=== PATIENT | female | born 1945 | race Caucasian/White ===

== ENCOUNTER → 2017-11-16 | Outpatient (CLI) | payer OTHER ==
[~2017-11-16] MED LIST: ALBU90OI INH; ASPI325 PO; ATEN100 PO; Biotin1 MG; Biotin1 MG PO; CALCIUM CITRAT1 EAC4 PO; CHOL10002 PO; CLARITIN10 MG PO; CYCL10 PO; Centrum Silver1 EAC1 PO; Dialyvite Tabl1 EACH PO; ERYT.5TO BOTHEYES; ERYTHROMYCIN OPTHALM BOTHEYES; FLUOCINOLONE; FLUT1DIS5 INH; GLIP5 PO; LATA.005SO BOTHEYES; LISI5 PO; MAGNESIUM400 M1 PO; METCAR500 PO; METF500C PO; MSM500 MG PO; NAPR500EC PO; OMEP20ER PO; OTEZLA30 MG PO; Percocet 5-3251 EACH PO; QVAR7.3 G1 INH; SITA100T2 PO; SUPER B-COMPL400 MCG PO; TEMOVATE 0.05% TOP; Tylenol325 MG PO; Zofran Odt4 MG PO; [UNRECOGNIZED DRUG - OTHER] PO
[2017-11-16 15:27] LABS: BASOPHILS ABSOLUTE AUTO 0.09 K/mm3 (0.00-0.23); BASOPHILS PERCENT AUTO 1 % (0-2); EOSINOPHILS ABSOLUTE AUTO 0.33 K/mm3 (0.00-0.68); EOSINOPHILS PERCENT AUTO 3 % (0-6); Hematocrit 38.7 % (33.0-51.0); Hemoglobin 12.9 g/dL (11.5-16.0); IMMATURE GRAN ABSOLUTE AUTO 0.05 K/mm3 (0.00-0.10); IMMATURE GRAN PERCENT AUTO 0 % (0-1); LYMPHOCYTES ABSOLUTE AUTO 2.61 K/mm3 (0.84-5.20); LYMPHOCYTES PERCENT AUTO 23 % (21-46); MONOCYTES ABSOLUTE AUTO 1.19 K/mm3 (0.16-1.47); MONOCYTES PERCENT AUTO 10 % (4-13); Mean Corpuscular HGB 30.7 pg (26.0-34.0); Mean Corpuscular HGB Conc 33.3 g/dL (31.5-36.5); Mean Corpuscular Volume 92 fL (80-100); Mean Platelet Volume 12.3 fL (9.1-12.4); NEUTROPHILS ABSOLUTE AUTO 7.29 K/mm3 (1.96-9.15); NEUTROPHILS PERCENT AUTO 63 % (41-73); Platelet Count 241 K/mm3 (150-400); RDW Coefficient Variation 12.6 % (11.7-14.2); RDW Standard Deviation 42.1 fL (35.1-46.3); White Blood Cell Count 11.56 K/mm3 (4.00-11.30)
[2017-11-16 15:42] LABS: Alanine Aminotransfer (ALT/SGP 32 U/L (12-78); Albumin, Blood 3.4 g/dL (3.4-5.0); Albumin/Globulin Ratio 0.9 (0.8-1.8); Alk Phos 124 U/L (40-126); Anion Gap 7 mmol/L (6-16); Aspartate Aminotrans (AST/SGOT 27 U/L (12-37); Bilirubin, Total 0.3 mg/dL (0.1-1.0); Blood Urea Nitrogen 10 mg/dL (8-24); Bun/Creatinine Ratio 15.9 (12.0-20.0); CO2, Blood 31 mmol/L (21-32); CPK Creatine Kinase 51 U/L (26-192); Calcium, Blood 9.2 mg/dL (8.5-10.1); Chloride, Blood 101 mmol/L (98-108); Creatinine, Blood 0.63 mg/dL (0.40-1.00); Glomerular Filtration Rate >60 (60-); Glucose, Blood 179 mg/dL (70-99); Potassium, Blood 3.6 mmol/L (3.5-5.5); Sodium, Blood 139 mmol/L (136-145); Total Protein, Blood 7.4 g/dL (6.4-8.2); Troponin I <0.017 ng/mL (0.000-0.040)
== END ==
LOC: LAB SHORT 15:22
PROVIDERS: General Practice
DX: R00.2 Palpitations (principal); R53.1 Weakness; R53.81 Other malaise
CPT/HCPCS: 80053; 82550; 84443; 84484; 85025

== ENCOUNTER 2018-06-02 05:47 | Day surgery (SDC) | payer OTHER ==
[~2018-06-02] VITALS: Ht 149.9 cm; Wt 86.6 kg
[~2018-06-02 05:47] MED LIST changes: -ASPI325 PO; -CYCL10 PO; -METF500C PO; +METF850 PO; -Percocet 5-3251 EACH PO; -Zofran Odt4 MG PO
[2018-06-03 06:15] LABS: BASOPHILS ABSOLUTE AUTO 0.08 K/mm3 (0.00-0.23); BASOPHILS PERCENT AUTO 1 % (0-2); EOSINOPHILS ABSOLUTE AUTO 0.26 K/mm3 (0.00-0.68); EOSINOPHILS PERCENT AUTO 2 % (0-6); Hematocrit 32.9 % (33.0-51.0); Hemoglobin 10.6 g/dL (11.5-16.0); IMMATURE GRAN ABSOLUTE AUTO 0.07 K/mm3 (0.00-0.10); IMMATURE GRAN PERCENT AUTO 0 % (0-1); LYMPHOCYTES ABSOLUTE AUTO 1.87 K/mm3 (0.84-5.20); LYMPHOCYTES PERCENT AUTO 12 % (21-46); MONOCYTES PERCENT AUTO 10 % (4-13); Mean Corpuscular HGB 30.5 pg (26.0-34.0); Mean Corpuscular HGB Conc 32.2 g/dL (31.5-36.5); Mean Corpuscular Volume 95 fL (80-100); Mean Platelet Volume 12.8 fL (9.1-12.4); NEUTROPHILS ABSOLUTE AUTO 11.89 K/mm3 (1.96-9.15); NEUTROPHILS PERCENT AUTO 76 % (41-73); Platelet Count 184 K/mm3 (150-400); RDW Coefficient Variation 12.5 % (11.7-14.2); RDW Standard Deviation 43.2 fL (35.1-46.3); Red Blood Cell Count 3.47 M/mm3 (3.80-5.20); White Blood Cell Count 15.67 K/mm3 (4.00-11.30)
[2018-06-03 06:47] LABS: Anion Gap 6 mmol/L (6-16); Blood Urea Nitrogen 12 mg/dL (8-24); Bun/Creatinine Ratio 17.3 (12.0-20.0); CO2, Blood 30 mmol/L (21-32); Calcium, Blood 8.5 mg/dL (8.5-10.1); Chloride, Blood 101 mmol/L (98-108); Glomerular Filtration Rate >60 (60-); Glucose, Blood 150 mg/dL (70-99); Potassium, Blood 4.4 mmol/L (3.5-5.5); Sodium, Blood 137 mmol/L (136-145)
[2018-06-03] MEDS ORDERED: ASPI325 PO (15:38)
[2018-06-03] MEDS ORDERED: Percocet 5-3251 EACH PO (15:39)
[2018-06-03] MEDS ORDERED: CYCL10 PO (15:39)
== END 2018-06-03 15:48 | disposition home or self-care (01) ==
LOC: ORSCMMR 05:47 → ORD 07:30 → SURS 10:56 → ORSCMMR 06-03 15:48
PROVIDERS: Orthopaedic Surgery
PROC: 0SRC0JA Replacement of Right Knee Joint with Synthetic Substitute, Uncemented, Open Approach (ICD-10-PCS; principal; 2018-06-02 07:30)
DX: M17.11 Unilateral primary osteoarthritis, right knee (principal); I10 Essential (primary) hypertension; G47.33 Obstructive sleep apnea (adult) (pediatric); E11.9 Type 2 diabetes mellitus without complications; K21.9 Gastro-esophageal reflux disease without esophagitis; E66.01 Morbid (severe) obesity due to excess calories; Z68.38 Body mass index [BMI] 38.0-38.9, adult; Z79.899 Other long term (current) drug therapy
CPT/HCPCS: 36415; 73560-RT; 80048; 82947; 85025; 85730; 86850; 86900; 86901; 88300; 94640; 94760; 97110; 97116; 97162; 97530; A9270; C1713; C1776; G8978; G8979; J0171; J0690; J0735; J1885; J2250; J2405; J2550; J2765; J2795; J3010; J7120

== ENCOUNTER 2019-06-03 10:37 | Day surgery (SDC) | payer OTHER ==
[~2019-06-03] VITALS: Ht 152.4 cm; Wt 76.5 kg
[~2019-06-03 10:37] MED LIST changes: +ASPI325 PO; +CYCL10 PO; +GABAPENTIN PO; +METF500C PO; -METF850 PO; +Percocet 5-3251 EACH PO; +TIZA4 PO; +Zofran Odt4 MG PO
--- NOTE | 2019-06-03 11:17 | NUR ---
Ambulatory in Day Surgery.REPORTS 9/10 LEFT KNEE PAIN. History, Chart, Medications and Allergies reviewed before start of procedure.Lungs clear T/O to Auscultation. Patient confirms NPO status and agrees with scheduled surgery. Patient reports completing Chlorhexadine shower X2 prior to admission to hospital.Surgical site prepped with 2% Chlorhexidine cloth wipe.
--- NOTE | 2019-06-03 15:10 | NUR ---
PT ARRIVED TO THE ROOM AT APPROXIMATELY 1445. PT ALERT AND ORIENTED. PT DENIES PAIN AT THIS TIME. VSS. WILL CONTINUE TO MONITOR.
--- NOTE | 2019-06-03 19:53 | NUR ---
SHIFT SUMMARY PAIN HAS BEEN MINIMAL POST OP. PT SLOWLY REGAINED SENSATION AND MOVEMENT TO LLE. PT NOW MOVING ALL EXTREMITIES WELL AND REPORTS FULL SENSATION. VSS. REPORT GIVEN TO LANDON VALLEJO.
[2019-06-04 04:27] LABS: BASOPHILS ABSOLUTE AUTO 0.01 K/mm3 (0.00-0.23); BASOPHILS PERCENT AUTO 0 % (0-2); EOSINOPHILS PERCENT AUTO 0 % (0-6); Hematocrit 34.5 % (33.0-51.0); Hemoglobin 11.3 g/dL (11.5-16.0); IMMATURE GRAN ABSOLUTE AUTO 0.07 K/mm3 (0.00-0.10); IMMATURE GRAN PERCENT AUTO 1 % (0-1); LYMPHOCYTES ABSOLUTE AUTO 1.24 K/mm3 (0.84-5.20); LYMPHOCYTES PERCENT AUTO 8 % (21-46); MONOCYTES ABSOLUTE AUTO 0.73 K/mm3 (0.16-1.47); MONOCYTES PERCENT AUTO 5 % (4-13); Mean Corpuscular HGB 30.6 pg (26.0-34.0); Mean Corpuscular HGB Conc 32.8 g/dL (31.5-36.5); Mean Corpuscular Volume 94 fL (80-100); NEUTROPHILS ABSOLUTE AUTO 12.89 K/mm3 (1.96-9.15); NEUTROPHILS PERCENT AUTO 86 % (41-73); Platelet Count 182 K/mm3 (150-400); RDW Coefficient Variation 12.1 % (11.7-14.2); Red Blood Cell Count 3.69 M/mm3 (3.80-5.20); White Blood Cell Count 14.94 K/mm3 (4.00-11.30)
[2019-06-04 04:28] LABS: Mean Platelet Volume 13.4 fL (9.1-12.4)
[2019-06-04 04:42] LABS: Anion Gap 8 mmol/L (6-16); Blood Urea Nitrogen 15 mg/dL (8-24); Bun/Creatinine Ratio 26.3 (12.0-20.0); CO2, Blood 27 mmol/L (21-32); Calcium, Blood 8.3 mg/dL (8.5-10.1); Chloride, Blood 100 mmol/L (98-108); Creatinine, Blood 0.57 mg/dL (0.40-1.00); Glomerular Filtration Rate >60 (60-); Glucose, Blood 254 mg/dL (70-99); Magnesium, Blood 1.7 mg/dL (1.6-2.4); Potassium, Blood 4.2 mmol/L (3.5-5.5); Sodium, Blood 135 mmol/L (136-145)
--- NOTE | 2019-06-04 07:07 | NUR ---
SHIFT SUMMARY HAS RESTED WITH WELL THIS SHIFT. HAS AMBULATED WITHIN THE ROOM WELL. PAIN MANGED WITH PO PAIN MEDS. SAFETY MEASURES IN PLACE. WILL CONTINUE TO MONITOR.
[2019-06-04] MEDS ORDERED: Percocet 5-3251 EACH PO (10:54)
[2019-06-04] MEDS ORDERED: Aspirin EC81 MG PO (10:54)
--- NOTE | 2019-06-04 12:45 | NUR ---
06/04/19 1245 Shelley Luque VERIFICATIONS: EDIT CHART.
--- NOTE | 2019-06-04 13:15 | NUR ---
DISCHARGE DISCHARGE INSTRUCTIONS REVIEWED WITH PATIENT AND HER DAUGHTER. PATIENT AWAITING RIDE
== END 2019-06-04 13:30 | disposition home or self-care (01) ==
LOC: ORSCMMR 10:37 → ORD 11:45 → SURS 14:53 → ORSCMMR 06-04 13:30 → SURS 06-04 13:30
PROVIDERS: Orthopaedic Surgery
PROC: 0SRD0JA Replacement of Left Knee Joint with Synthetic Substitute, Uncemented, Open Approach (ICD-10-PCS; principal; 2019-06-03 11:45)
DX: M17.12 Unilateral primary osteoarthritis, left knee (principal); Z01.818 Encounter for other preprocedural examination; I10 Essential (primary) hypertension; G47.33 Obstructive sleep apnea (adult) (pediatric); K21.9 Gastro-esophageal reflux disease without esophagitis; E11.9 Type 2 diabetes mellitus without complications; E66.9 Obesity, unspecified; Z68.32 Body mass index [BMI] 32.0-32.9, adult
CPT/HCPCS: 36415; 73560-LT; 80048; 82947; 83735; 85025; 86850; 86900; 86901; 88300; 97110; 97116; 97162; 97530; A9270; C1776; J0171; J0690; J0735; J1100; J1170; J1815; J1885; J2250; J2405; J2550; J2704; J2765; J2795; J3010; J7120

== ENCOUNTER 2019-09-23 12:30 | Day surgery (SDC) | payer OTHER ==
[~2019-09-23] VITALS: Ht 157.5 cm; Wt 74.7 kg
[~2019-09-23 12:30] MED LIST changes: +Aspirin EC81 MG PO; +Metformin HCl1000 MG PO; +Prinivil10 MG PO; +QVAR REDIHALE10.6 GM INH
--- NOTE | 2019-09-23 13:20 | NUR ---
09/23/19 1320 BRIAN MELENDZE ONE BAD IV DUE TO VALVE, ONE GOOD IV IN RIGHT AC DONE BY DAVID
== END 2019-09-23 14:26 | disposition home or self-care (01) ==
LOC: ORSCSDS 12:30
PROVIDERS: Surgery
PROC: 0DJD8ZZ Inspection of Lower Intestinal Tract, Via Natural or Artificial Opening Endoscopic (ICD-10-PCS; principal; 2019-09-23 13:45)
PROC: 0DJ08ZZ Inspection of Upper Intestinal Tract, Via Natural or Artificial Opening Endoscopic (ICD-10-PCS; 2019-09-23 13:45)
DX: Z12.11 Encounter for screening for malignant neoplasm of colon (principal); Z86.010 Personal history of colon polyps; K21.9 Gastro-esophageal reflux disease without esophagitis; E11.9 Type 2 diabetes mellitus without complications; Z79.84 Long term (current) use of oral hypoglycemic drugs; Z79.899 Other long term (current) drug therapy
CPT/HCPCS: 43235; G0105; 82947; J2704; J7120

== ENCOUNTER → 2020-01-30 | Outpatient (CLI) | payer OTHER | END | disposition home or self-care (01) | LOC: LAB EV 12:01 → EDSTATUS 01-24 18:40 → LAB FUT 01-24 18:40 | DX: E11.9 Type 2 diabetes mellitus without complications (principal); K86.89 Other specified diseases of pancreas; R19.7 Diarrhea, unspecified | CPT/HCPCS: 82656 ==

== ENCOUNTER → 2021-01-12 | Outpatient (CLI) | payer OTHER ==
[2021-01-12 14:18] LABS: Source, Urine Clean Catch
[2021-01-12 14:24] LABS: Appearance, Urine Clear (Clear); Bilirubin, Urine Neg (Neg); Blood, Urine Neg (Neg); Color, Urine Yellow (P-Yellow); Glucose Qualitative, Urine 3+ (Normal); Ketones, Urine Neg (Neg); Leukocyte Esterase, Urine Neg (Neg); Nitrite, Urine Neg (Neg); Protein, Urine Neg (Neg); Specific Gravity, Urine 1.015 (1.003-1.022); Urobilinogen, Urine NORM (Normal)
== END | disposition home or self-care (01) ==
LOC: LAB 13:30 → LAB SHORT 13:30
PROVIDERS: Nurse Practitioner Family
DX: R30.0 Dysuria (principal)
CPT/HCPCS: 81003

== ENCOUNTER → 2021-06-26 | Outpatient (CLI) | payer OTHER | LOC: LAB SHORT 10:49 → LAB EV 10:49 | DX: N39.0 Urinary tract infection, site not specified (principal) | CPT/HCPCS: 87077; 87086; 87147; 87186 ==

== ENCOUNTER → 2022-01-23 | Outpatient (CLI) | payer OTHER ==
[2022-01-24 18:55] LABS: Adenovirus F 40/41 Not Detected (NOT DETECT); Astrovirus Not Detected (NOT DETECT); Campylobacter Sp Not Detected (NOT DETECT); Cryptosporidium Not Detected (NOT DETECT); Cyclospora Cayetanensis Not Detected (NOT DETECT); E. Coli O157 Not Detected (NOT DETECT); Entamoeba Histolytica Not Detected (NOT DETECT); Enteroaggregative E. coli-EAEC Not Detected (NOT DETECT); Enteropathogenic E. coli-EPEC Not Detected (NOT DETECT); Enterotoxigenic E. coli-ETEC Not Detected (NOT DETECT); Giardia Lamblia Not Detected (NOT DETECT); Norovirus GI/GII Not Detected (NOT DETECT); Plesiomonas Shigelloides Not Detected (NOT DETECT); Rotavirus A Not Detected (NOT DETECT); Salmonella Sp Not Detected (NOT DETECT); Sapovirus Not Detected (NOT DETECT); Shiga Toxin-prod E. coli-STEC Not Detected (NOT DETECT); Shigella/Enteroin E. coli-EIEC Not Detected (NOT DETECT); Vibrio Cholerae Not Detected (NOT DETECT); Vibrio Sp Not Detected (NOT DETECT); Yersinia Enterocolitica Not Detected (NOT DETECT)
== END | disposition home or self-care (01) ==
LOC: LAB SHORT 14:47 → LAB 14:47 → EDSTATUS 12-25 16:45 → LAB FUT 12-25 16:45
PROVIDERS: Physician Assistant Medical
DX: K52.9 Noninfective gastroenteritis and colitis, unspecified (principal)
CPT/HCPCS: 0097U

== ENCOUNTER → 2022-05-13 | Outpatient (CLI) | payer OTHER | END | disposition home or self-care (01) | LOC: LAB SHORT 10:31 → LAB 10:31 | DX: R30.0 Dysuria (principal) | CPT/HCPCS: 87077; 87086; 87186 ==

== ENCOUNTER → 2022-07-29 | Outpatient (CLI) | payer OTHER ==
[2022-07-30 19:43] LABS: Adenovirus F 40/41 Not Detected (NOT DETECT); Astrovirus Not Detected (NOT DETECT); Campylobacter Sp Not Detected (NOT DETECT); Cryptosporidium Not Detected (NOT DETECT); Cyclospora Cayetanensis Not Detected (NOT DETECT); E. Coli O157 Not Detected (NOT DETECT); Entamoeba Histolytica Not Detected (NOT DETECT); Enteroaggregative E. coli-EAEC Not Detected (NOT DETECT); Enteropathogenic E. coli-EPEC Not Detected (NOT DETECT); Enterotoxigenic E. coli-ETEC Not Detected (NOT DETECT); Giardia Lamblia Not Detected (NOT DETECT); Norovirus GI/GII Not Detected (NOT DETECT); Plesiomonas Shigelloides Not Detected (NOT DETECT); Rotavirus A Not Detected (NOT DETECT); Salmonella Sp Not Detected (NOT DETECT); Sapovirus Not Detected (NOT DETECT); Shiga Toxin-prod E. coli-STEC Not Detected (NOT DETECT); Shigella/Enteroin E. coli-EIEC Not Detected (NOT DETECT); Vibrio Cholerae Not Detected (NOT DETECT); Vibrio Sp Not Detected (NOT DETECT); Yersinia Enterocolitica Not Detected (NOT DETECT)
== END | disposition home or self-care (01) ==
LOC: LAB SHORT 16:00
PROVIDERS: Physician Assistant Medical
DX: R19.7 Diarrhea, unspecified (principal)
CPT/HCPCS: 87507

== ENCOUNTER 2022-08-26 22:39 | Inpatient (IN) | payer OTHER ==
[~2022-08-26] VITALS: Ht 152.4 cm; Wt 79.0 kg
[2022-08-27 00:15] LABS: BASOPHILS ABSOLUTE AUTO 0.09 K/mm3 (0.00-0.23); BASOPHILS PERCENT AUTO 1 % (0-2); EOSINOPHILS ABSOLUTE AUTO 0.22 K/mm3 (0.00-0.68); EOSINOPHILS PERCENT AUTO 2 % (0-6); Hematocrit 35.9 % (33.0-51.0); Hemoglobin 11.9 g/dL (11.5-16.0); IMMATURE GRAN ABSOLUTE AUTO 0.07 K/mm3 (0.00-0.10); IMMATURE GRAN PERCENT AUTO 1 % (0-1); LYMPHOCYTES ABSOLUTE AUTO 2.23 K/mm3 (0.84-5.20); LYMPHOCYTES PERCENT AUTO 15 % (21-46); MONOCYTES ABSOLUTE AUTO 1.05 K/mm3 (0.16-1.47); MONOCYTES PERCENT AUTO 7 % (4-13); Mean Corpuscular HGB 31.1 pg (26.0-34.0); Mean Corpuscular HGB Conc 33.1 g/dL (31.5-36.5); Mean Corpuscular Volume 94 fL (80-100); Mean Platelet Volume 12.6 fL (9.1-12.4); NEUTROPHILS ABSOLUTE AUTO 11.35 K/mm3 (1.96-9.15); NEUTROPHILS PERCENT AUTO 76 % (41-73); Platelet Count 187 K/mm3 (150-400); RDW Coefficient Variation 12.7 % (11.7-14.2); RDW Standard Deviation 43.8 fL (35.1-46.3); Red Blood Cell Count 3.83 M/mm3 (3.80-5.20); White Blood Cell Count 15.01 K/mm3 (4.00-11.30)
[2022-08-27 00:44] LABS: Albumin, Blood 3.2 g/dL (3.4-5.0); Albumin/Globulin Ratio 0.9 (0.8-1.8); Bilirubin, Total 0.3 mg/dL (0.1-1.0); Bun/Creatinine Ratio 25.5 (12.0-20.0); Calcium, Blood 8.8 mg/dL (8.5-10.1); Creatinine, Blood 0.59 mg/dL (0.40-1.00); Globulin, Blood 3.7 g/dL (2.2-4.0); Potassium, Blood 4.3 mmol/L (3.5-5.5); Total Protein, Blood 6.9 g/dL (6.4-8.2)
[2022-08-27 01:02] LABS: Influenza A, PCR NEGATIVE (NEGATIVE); Influenza B, PCR NEGATIVE (NEGATIVE); Resp Syncytial Virus, PCR NEGATIVE (NEGATIVE); SARS-Cov-2 (COVID-19) PCR, MMC NEGATIVE (NEGATIVE)
[2022-08-27] MEDS ORDERED: PANT40 PO (02:04)
[2022-08-27] MEDS ORDERED: INSULANI SC (02:08)
[2022-08-27] MEDS ORDERED: TRULICITY1.5 MG/0.1 (02:13)
--- NOTE | 2022-08-27 02:52 | NUR ---
PT ARRIVED TO THE ROOM FROM ER. A/OX4, PAINFUL. VSS. RIGHT LEG SHORTENED AND EXTERNALLY ROTATED, PULSES AND SENSATION STRONG. PT CAN WIGGLE TOES ON RLE. PLAN TO PLACE ALVA. DR WOLF SAW THE PATIENT, ORDERS GIVEN. PATIENT ORIENTED TO ROOM AND CALL LIGHT, NPO STATUS.
--- NOTE | 2022-08-27 03:22 | NUR ---
PATIENT REQUESTED TO BE DNI. DR WOLF CALLED, OBTAINED ORDER FOR A DO NOT INTUBATE STATUS.
[2022-08-27 03:26] LABS: Source, Urine Foley catheter
[2022-08-27 03:56] LABS: Bilirubin, Urine Neg (Neg); Blood, Urine Neg (Neg); Glucose Qualitative, Urine Neg (Neg); Ketones, Urine Neg (Neg); Leukocyte Esterase, Urine Neg (Neg); Nitrite, Urine Neg (Neg); Protein, Urine Neg (Neg); Specific Gravity, Urine 1.005 (1.003-1.022); Urobilinogen, Urine NORM (Normal)
[2022-08-27 03:58] LABS: Appearance, Urine Clear (Clear); Color, Urine Yellow (P-Yellow)
--- NOTE | 2022-08-27 04:36 | NUR ---
PT NEW ADMIT FROM THE ER. VSS, 2L O2 VIA NC TO KEEP SATS >90%. RLE SHORTENED AND EXTERALLY ROTATED, SENSATION AND CIRCULATION IN TACT. PAIN HAS BEEN MANAGED WITH A DOSE OF DILAUDID. ALVA PLACED. ORTHO CONSULT PLACED. PT NPO SINCE ARRIVAL TO FLOOR. AWAITING SURGICAL PLANS. PT IS CURRENTLY SLEEPING, CALL LIGHT IN REACH
[2022-08-27 08:32] LABS: BASOPHILS ABSOLUTE AUTO 0.06 K/mm3 (0.00-0.23); BASOPHILS PERCENT AUTO 0 % (0-2); EOSINOPHILS ABSOLUTE AUTO 0.01 K/mm3 (0.00-0.68); EOSINOPHILS PERCENT AUTO 0 % (0-6); Hematocrit 34.8 % (33.0-51.0); Hemoglobin 11.3 g/dL (11.5-16.0); IMMATURE GRAN ABSOLUTE AUTO 0.06 K/mm3 (0.00-0.10); IMMATURE GRAN PERCENT AUTO 0 % (0-1); LYMPHOCYTES ABSOLUTE AUTO 1.54 K/mm3 (0.84-5.20); LYMPHOCYTES PERCENT AUTO 10 % (21-46); MONOCYTES ABSOLUTE AUTO 1.03 K/mm3 (0.16-1.47); MONOCYTES PERCENT AUTO 7 % (4-13); Mean Corpuscular HGB 30.6 pg (26.0-34.0); Mean Corpuscular HGB Conc 32.5 g/dL (31.5-36.5); Mean Corpuscular Volume 94 fL (80-100); Mean Platelet Volume 12.7 fL (9.1-12.4); NEUTROPHILS ABSOLUTE AUTO 12.36 K/mm3 (1.96-9.15); NEUTROPHILS PERCENT AUTO 82 % (41-73); Platelet Count 195 K/mm3 (150-400); RDW Coefficient Variation 12.6 % (11.7-14.2); RDW Standard Deviation 43.6 fL (35.1-46.3); Red Blood Cell Count 3.69 M/mm3 (3.80-5.20); White Blood Cell Count 15.06 K/mm3 (4.00-11.30)
[2022-08-27 08:55] LABS: Albumin, Blood 3.2 g/dL (3.4-5.0); Albumin/Globulin Ratio 0.9 (0.8-1.8); Bilirubin, Total 0.5 mg/dL (0.1-1.0); Bun/Creatinine Ratio 25.8 (12.0-20.0); Calcium, Blood 8.5 mg/dL (8.5-10.1); Creatinine, Blood 0.74 mg/dL (0.40-1.00); Globulin, Blood 3.5 g/dL (2.2-4.0); Potassium, Blood 4.2 mmol/L (3.5-5.5); Total Protein, Blood 6.7 g/dL (6.4-8.2)
--- NOTE | 2022-08-27 11:22 | NUR ---
Pt. is awake in bed and welcomes my visit. Pt. is pleasant and verbalizes that she is awaiting surgery on her leg/hip. Pt. is unsettled by her at home who displays evidence of early stage altzhiemers. Listening with a calming presence. Facilitate a life review. Pt. display evidence of engagement and trust. Prayed with Pt. Pt. verbalized gratitude for the spiritual care visit.
--- NOTE | 2022-08-27 17:16 | NUR ---
Patient confirms NPO status and agrees with scheduled surgery. History, Chart, Medications and Allergies reviewed before start of procedure.Pre-Op teaching done. Pt verbalizes understanding. Lungs clear T/O to Auscultation.
--- NOTE | 2022-08-27 17:19 | NUR ---
IV 22G R AC, RUNS WELL. PT REFUSES SECOND IV AND WISHES FOR IV TO BE PLACED ONCE SHE'S ASLEEP IF NEEDED.
--- NOTE | 2022-08-27 17:25 | NUR ---
SHIFT SUMMARY PT HAS BEEN NPO ALL DAY, PAIN TREATED WITH 50 FENT Q4P, BUCKS TRACTION ON, ALVA PATENT & DRAINING YELLOW URINE. PT WENT TO O.R. APPROX 1645. AT BEDSIDE TILL 1630. WILL REPORT TO ONCOMING LANDON VALLEJO.
--- NOTE | 2022-08-27 20:26 | NUR ---
PT ARRIVED TO FLOOR FROM PACU. RECIEVED 100 MIKES OF FENT BEFORE ARRIVING TO THE FLOOR. VSS. PT A/OX4, ON 2L O2 VIA NC. RLE HAS SENSATION AND CIRCULATION IN TACT. AQUACEL DRESSING IS C/D/I. PT IS RESING IN BED, CALL LIGHT IN REACH.
--- NOTE | 2022-08-28 04:30 | NUR ---
POD1 FOR A RIGHT HIP NAILING. VSS. AQUACELL DRESSING REMAINS C/D/I, NO DRAINAGE NOTED. ICE PACKS HAVE BEEN PLACED ON THE RIGHT HIP AND RIGHT KNEE T/O THE NIGHT. RLE REMAINS ELEVATED ON A PILLOW. CIRCULATION AND SENSATION REMAINS INTACT. PAIN HAS BEEN CONTROLLED WITH FENTENYL, TYLENOL, AND NORCO. THE PATIENT WAS OFFERED AND EDUCATED MULTIPLE TIMES ON REPOSTIONING FOR COMFORT AND SKIN HEALTH, BUT SHE DECLINED DUE TO ANXIETY OF BECOMING MORE PAINFUL. PT TOLLERATING MINIMAL PO INTAKE, ENCOURAGING ORAL FLUIDS AND EATING A SNACK WHEN TAKING ORAL MEDICATION. PT C/O FEELING IF SHE HAS A LOT OF GAS IN HER ABDOMEN. ALVA REMAINS PATENT. PT REMAINED ON 2L O2 VIA NC T/O THE NIGHT. THE PLAN OF CARE IS FOR THE PATIENT TO WORK WITH THERAPY FOR A FEW DAYS AND THEN BE DISCHARGED TO SNF. THE PATIENT IS CURRENTLY SLEEPING, CALL LIGHT IN REACH.
--- NOTE | 2022-08-28 14:07 | NUR ---
Pt. is awake in bed and welcomes my visit. Pt. is pleasant, but is unsettled by how her is having to care for himself, and has not been understanding of the Pts. needs and condition. Listen empathetically with a calming presence. Pt. displays evidence of awareness of the need to take care of herself first. Prayed with Pt. Pt. verbalized gratitude for the spiritual care visit.
--- NOTE | 2022-08-28 17:43 | NUR ---
SUMMARY: PT IS POD1 R HIP PINNING. A/O, VSS. SURGICAL SITE WNL. PT WORKED WITH THERAPY, SEE NOTES. PT CONTINUES TO BE PAINFUL, THERAPY REPORTED THAT PT COMPLAINED MORE OF PAIN AT R KNEE THAN AT HIP. DR. BENSON IS AWARE OF SWELLING AT R KNEE AND AN ULTRASOUND WAS COMPLETED TODAY. PT MEDICATED PER EMAR FOR PAIN AND ICE APPLIED TO HIP AND KNEE. PT RELUCTANT TO MOVE AT TIMES TODAY, NEEDS EDUCATION AND ENCOURAGEMENT. THIS RN REMINDED PT OF IMPORTANCE OF MOBILITY POST OP. OTHERWISE NO CONCERNS, WILL PASS REPORT TO NOC RN.
--- NOTE | 2022-08-29 04:27 | NUR ---
POD2 FOR A RIGHT HIP PINNING. SENSATION AND CIRCULATION IS IN TACT, AQUACELL DRESSING REMAINES C/D/I. ICE PACKS REMAINED ON THE PATIENTS HIP AND RIGHT KNEE T/O THE NIGHT . THE PATIENT REQUESTED FOR THE SCD'S AND FLAVIA HOFATEMEH TO BE REMOVED FOR PART OF THE NIGHT, EDUCATED ON THE IMPORTANCE OF THESE. VSS. PT SLEPT WELL T/O THE NIGHT. MEDICATED FOR PAIN WITH NORCO. ALVA REMAINS IN PLACE, PATENT, PLAN IS FOR THIS TO BE REMOVED TODAY. PT WAS RELUCTANT TO BE REPOSITIONED T/O THE NIGHT BUT ALLOWED IT. PLAN IS FOR THE PATIENT TO CONTINUE WORKING WITH PT UNTIL SHE DISCHARGES TO SNF. THE PATIENT IS CURRENTLY RESTING, IN NO DISTRESS.
[2022-08-29 04:42] LABS: BASOPHILS ABSOLUTE AUTO 0.07 K/mm3 (0.00-0.23); BASOPHILS PERCENT AUTO 1 % (0-2); EOSINOPHILS ABSOLUTE AUTO 0.18 K/mm3 (0.00-0.68); EOSINOPHILS PERCENT AUTO 1 % (0-6); Hematocrit 26.5 % (33.0-51.0); Hemoglobin 8.8 g/dL (11.5-16.0); IMMATURE GRAN ABSOLUTE AUTO 0.05 K/mm3 (0.00-0.10); IMMATURE GRAN PERCENT AUTO 0 % (0-1); LYMPHOCYTES ABSOLUTE AUTO 3.26 K/mm3 (0.84-5.20); LYMPHOCYTES PERCENT AUTO 26 % (21-46); MONOCYTES PERCENT AUTO 13 % (4-13); Mean Corpuscular HGB Conc 33.2 g/dL (31.5-36.5); Mean Corpuscular Volume 93 fL (80-100); Mean Platelet Volume 12.5 fL (9.1-12.4); NEUTROPHILS ABSOLUTE AUTO 7.54 K/mm3 (1.96-9.15); NEUTROPHILS PERCENT AUTO 59 % (41-73); Platelet Count 159 K/mm3 (150-400); RDW Coefficient Variation 12.4 % (11.7-14.2); RDW Standard Deviation 42.5 fL (35.1-46.3); Red Blood Cell Count 2.84 M/mm3 (3.80-5.20)
[2022-08-29 12:25] LABS: SARS-Cov-2 (COVID-19) PCR, MMC NEGATIVE (NEGATIVE)
--- NOTE | 2022-08-29 16:02 | NUR ---
DISCHARGE POD 2 R HIP PINNING. X1 AQUACELS IN PLACE, C/D/I. TRANSFERRING 2P ASSIST, STAND/PIVOT TO CHAIR/BSC. EATING, DRINKING, & VOIDING WELL. DENEIS N/V. MODERATE PAIN MANAGED PER EMAR W/ TYLENOL & NORCO. REPORT CALLED TO GENEVIEVE POP @ [facility]. TRANSPORTED VIA W/C W/ TRANSPORT TEAM.
== END 2022-08-29 16:09 | disposition home or self-care (01) | DRG 482 ==
LOC: ER 22:39 → SURS 08-27 01:19
PROVIDERS: Internal Medicine; Orthopaedic Surgery; Student in an Organized Health Care Education/Training Program; ADMIT Internal Medicine
PROC: 0QS636Z Reposition Right Upper Femur with Intramedullary Internal Fixation Device, Percutaneous Approach (ICD-10-PCS; principal; 2022-08-27 17:00)
DX: S72.141A Displaced intertrochanteric fracture of right femur, initial encounter for closed fracture (principal); E11.9 Type 2 diabetes mellitus without complications; K21.9 Gastro-esophageal reflux disease without esophagitis; I10 Essential (primary) hypertension; W18.30XA Fall on same level, unspecified, initial encounter; K59.00 Constipation, unspecified; S72.21XA Displaced subtrochanteric fracture of right femur, initial encounter for closed fracture; Z20.822 Contact with and (suspected) exposure to COVID-19; Z96.653 Presence of artificial knee joint, bilateral; Z66 Do not resuscitate; Z88.2 Allergy status to sulfonamides; Z88.1 Allergy status to other antibiotic agents; Z88.5 Allergy status to narcotic agent; Z91.040 Latex allergy status; Z79.899 Other long term (current) drug therapy; Z79.51 Long term (current) use of inhaled steroids; Z79.811 Long term (current) use of aromatase inhibitors; Z79.84 Long term (current) use of oral hypoglycemic drugs; Z79.82 Long term (current) use of aspirin; Z90.49 Acquired absence of other specified parts of digestive tract; Z91.041 Radiographic dye allergy status; Z98.890 Other specified postprocedural states; Z79.4 Long term (current) use of insulin
CPT/HCPCS: 0241U; 36415; 73502; 73552; 76882; 80053; 81003; 82947; 83880; 85025; 93005; 93010; 94760; 96374; 96376; 97110; 97162; 97530; 99285-25; A9270; C1713; C1769; J0690; J1170; J1815; J2405; J2704; J2765; J3010; J7030; U0004

== ENCOUNTER → 2022-12-12 | Outpatient (CLI) | payer OTHER ==
[~2022-12-12] MED LIST changes: +INSULANI SC; +PANT40 PO; +TRULICITY1.5 MG/0.1
[2022-12-13 10:19] LABS: Candida species (DNA Probe) Negative (NEGATIVE); G. vaginalis (DNA Probe) Negative (NEGATIVE); T. vaginalis (DNA Probe) Negative (NEGATIVE)
== END | disposition home or self-care (01) ==
LOC: LAB SHORT 11:30 → LAB 11:30
PROVIDERS: Internal Medicine
DX: R30.9 Painful micturition, unspecified (principal)
CPT/HCPCS: 87480; 87510; 87660

== ENCOUNTER → 2024-08-31 | Outpatient (CLI) | payer OTHER ==
[~2024-08-31] MED LIST changes: +ALEN70; +ALLEGRA ALLERGY60 MG PO; +Bentyl10 MG PO; +CARB200 PO; +CLIN1TS; +GABA300 PO; +LISI20 PO; +METF500 PO; +METO50ER; +OTEZLA30 MG; +OZEMPIC0.25 MG/02 SQ; +XYZAL5 MG PO
== END ==
LOC: LAB 18:22 → LAB SHORT 18:22
DX: N39.0 Urinary tract infection, site not specified (principal)
CPT/HCPCS: 87077; 87086; 87186

== ENCOUNTER → 2025-03-23 | Outpatient (CLI) | payer OTHER ==
[2025-03-23 20:55] LABS: Microalb/Creat Ratio UR, Rand 14.577 mg/g (0.000-30.000); Microalbumin, Random Urine 7.58 mg/L (0.000-20.000)
== END | disposition home or self-care (01) ==
LOC: LAB 15:00 → LAB SHORT 15:00
PROVIDERS: Internal Medicine
DX: E11.42 Type 2 diabetes mellitus with diabetic polyneuropathy (principal)
CPT/HCPCS: 82043; 82570

== ENCOUNTER 2025-08-10 10:06 | Day surgery (SDC) | payer OTHER ==
[~2025-08-10] VITALS: Ht 147.3 cm; Wt 67.0 kg
[~2025-08-10 10:06] MED LIST changes: +EPINEPhrine HCl 1 MG / ML 30ML Vial ONE; +Lidocaine 2%-Epineph 1:200000 20 ML SDV ONE; +Tranexamic Acid 100 ML IV ONE
[2025-08-10] MEDS ORDERED: FAMO20 PO (10:31)
[2025-08-10] MEDS ORDERED: SPIR50 PO (10:32)
[2025-08-10] MEDS ORDERED: FURO20 PO (10:33)
[2025-08-10] MEDS ORDERED: LACT10SY PO (10:34)
[2025-08-10] MEDS ORDERED: AMOX-CLAV 875-1 EAC5 PO (11:08)
[2025-08-10] MEDS ORDERED: PRED20 PO (11:08)
[2025-08-10] MEDS ORDERED: Estrace Vagin42.5 GM PV (11:09)
[2025-08-10] MEDS ORDERED: NYSTRIT TOP (11:09)
[2025-08-10] MEDS ORDERED: Ipratropium/Albuterol SulF 2.5-0.5MG/3 ML Amp ONE (11:15)
[2025-08-10] MEDS ORDERED: Citric Acid/Sodium Citrate 30 ML BTL ONE (11:26)
[2025-08-10] MEDS ORDERED: Dexamethasone Sod Phos 10 MG/ML 1ML VIAL ONE (12:01)
[2025-08-10] MEDS ORDERED: FentaNYL Citrate 50 MCG/ML 2 ML Injection ONE (12:01)
[2025-08-10] MEDS ORDERED: Midazolam HCl 1MG / ML 2ML Vial ONE (12:01)
[2025-08-10] MEDS ORDERED: Ondansetron HCl 2 MG / ML 2ML Vial ONE (12:01)
[2025-08-10] MEDS ORDERED: Rocuronium Bromide 10 MG/ML 5ML Injection IV ONE (12:01)
--- NOTE | 2025-08-10 12:37 | NUR ---
08/10/25 Yoon Pope 1228: PATIENT ASSISTED TO RESTROOM.
[2025-08-10] MEDS ORDERED: Phenylephrine HCl 100 MCG/ML-NS 10MLSYR (1MG/10ML) ONE ×2 (12:50)
[2025-08-10] MEDS ORDERED: Phenylephrine HCl 10mg/ml 1 ml Vial ONE (12:59)
--- NOTE | 2025-08-10 13:11 | NUR ---
08/10/25 1311 Katy Ramirez SINGLE DOSE OF TXA GIVEN IN OR BY DR EISENBERG AT [id number]
[2025-08-10] MEDS ORDERED: Sugammadex Sodium 200 MG/2ML SDV (100 MG/ML) ONE (14:04)
--- NOTE | 2025-08-10 15:11 | NUR ---
08/10/25 1511 Steven Wen PT REPORTED SHE HAD BEEN INCONTINENT OF URINE IMMEDIATELY UPON ARRIVAL IN SDU. SHE WAS TAKEN TO THE RESTROOM WHERE SHE HAD A BOWEL MOVMENT AND WAS ASSISSTED WITH CLEANING BY [email or web address].
[2025-08-10 16:21] VITALS: BP 149/74
== END 2025-08-10 16:27 | disposition home or self-care (01) ==
LOC: ORSCSDS 10:06
PROVIDERS: Otolaryngology
PROC: 09DV4ZZ Extraction of Left Ethmoid Sinus, Percutaneous Endoscopic Approach (ICD-10-PCS; principal; 2025-08-10 11:30)
PROC: 09DX4ZZ Extraction of Left Sphenoid Sinus, Percutaneous Endoscopic Approach (ICD-10-PCS; principal; 2025-08-10 11:30)
PROC: 09DU4ZZ Extraction of Right Ethmoid Sinus, Percutaneous Endoscopic Approach (ICD-10-PCS; principal; 2025-08-10 11:30)
DX: J32.8 Other chronic sinusitis (principal); J32.3 Chronic sphenoidal sinusitis; J32.2 Chronic ethmoidal sinusitis; J34.3 Hypertrophy of nasal turbinates; I10 Essential (primary) hypertension; G47.33 Obstructive sleep apnea (adult) (pediatric); J45.909 Unspecified asthma, uncomplicated; G51.0 Bell's palsy; E66.9 Obesity, unspecified; Z68.30 Body mass index [BMI] 30.0-30.9, adult; E11.40 Type 2 diabetes mellitus with diabetic neuropathy, unspecified; Z79.84 Long term (current) use of oral hypoglycemic drugs; Z79.899 Other long term (current) drug therapy; Z79.85 Long-term (current) use of injectable non-insulin antidiabetic drugs
CPT/HCPCS: 82947; 88305; 88311; 88312; A9270; C2625; J0165; J1100; J2250; J2371; J2405; J2704; J3010; J7120